=== PATIENT | female | born 1975 | race Caucasian/White ===

== ENCOUNTER → 2019-04-13 | Outpatient (CLI) | payer OTHER | END | disposition home or self-care (01) | LOC: CFH 07:06 | PROVIDERS: ATTEND Family Medicine | DX: Z12.31 Encounter for screening mammogram for malignant neoplasm of breast (principal) | CPT/HCPCS: 77063; 77067 ==

== ENCOUNTER 2020-08-07 17:17 | Emergency (ER) | payer BC, OTHER ==
[~2020-08-07] VITALS: Ht 147.3 cm; Wt 50.2 kg
[2020-08-07 17:21] VITALS: BP 122/73
[2020-08-07] MEDS ORDERED: LIDOCAINE-MPF 1%, 5ML ONE (17:37)
--- NOTE | 2020-08-07 17:38 | NUR ---
TASK RN. CC OF LAC TO LEFT FOREARM AFTER CLEANING SHOWER AND GLASS BREAKING. PT STATES SHOWER DOOR CAME OFF THE TRACKS AND WENT TO PICK IT UP AND GRABBED IT WRONG AND IT SHATTERED. PT HAS SMALLER CUTS TO LEFT HAND, BLEEDING CONTROLLED. ONE PIECE OF SMALL GLASS PICKED OUT BY PT. AT BEDSIDE. REPORT GIVEN TO DELLA ARITA
[2020-08-07] MEDS ORDERED: LIDOCAINE 1%, 10ML INFIL ONE (18:00)
[2020-08-07] MEDS ORDERED: NEOSPORIN OINT. PKT 1 PACKET ONE (18:41)
== END 2020-08-07 18:49 | disposition home or self-care (01) ==
LOC: ED 18:45
DX: S51.811A Laceration without foreign body of right forearm, initial encounter (principal); S60.812A Abrasion of left wrist, initial encounter; X58.XXXA Exposure to other specified factors, initial encounter; Y93.89 Activity, other specified; Y92.009 Unspecified place in unspecified non-institutional (private) residence as the place of occurrence of the external cause; Y99.8 Other external cause status
CPT/HCPCS: 12031; 99284

== ENCOUNTER → 2020-10-07 | Outpatient (CLI) | payer BC ==
[2020-10-07 09:15] LABS: BASOPHILS % (AUTO) 1 % (0-1); EOSINOPHILS % (AUTO) 5 % (1-7); LYMPHOCYTES % (AUTO) 27 % (22-44); MEAN CORPUSCULAR HEMOGLOBIN 24.8 pg (27.0-34.8); MEAN CORPUSCULAR HGB CONC 32.2 g/dL (32.4-35.8); MONOCYTES % (AUTO) 7 % (2-9); NEUTROPHILS % (AUTO) 59 % (42-75); PLATELET COUNT 431 x10^3/uL (130-400); RED BLOOD COUNT 4.67 x10^6/uL (3.82-5.3); RED CELL DISTRIBUTION WIDTH 17.3 % (9.6-15.2)
[2020-10-07 09:24] LABS: ALBUMIN 3.6 g/dL (3.4-5.0); ANION GAP 7 mmol/L (5-15); CALCIUM 8.4 mg/dL (8.5-10.1); CHLORIDE 107 mmol/L (98-107)
[2020-10-07 09:34] LABS: ALANINE AMINOTRANSFERASE 39 U/L (12-78); ALKALINE PHOSPHATASE 59 U/L (45-117); BILIRUBIN,TOTAL 0.3 mg/dL (0.2-1.0); CHOL/HDL RATIO 2.6; CHOLESTEROL, TOTAL 268 mg/dL (140-239); CREATINE KINASE, TOTAL 468 U/L (26-192); CREATININE 0.76 mg/dL (0.55-1.02); HDL CHOL % 38 % (28-40); HDL CHOLESTEROL (DIRECT) 102 mg/dL (40-60); LDL CHOLESTEROL,CALCULATED 155 mg/dL (54-169); LDL/HDL RATIO 1.5 (0.5-3.0); TOTAL PROTEIN 7.4 g/dL (6.4-8.2); TRIGLYCERIDES 54 mg/dL (50-200); VLDL CHOLESTEROL 11 mg/dL (0-25)
[2020-10-07 09:41] LABS: C-REACTIVE PROTEIN, QUANT 0.02 mg/dL (0.02-0.49)
[2020-10-07 09:51] LABS: MICROSCOPIC NOT IND
== END | disposition home or self-care (01) ==
LOC: LAB 08:17
PROVIDERS: ATTEND Family Medicine
DX: Z00.00 Encounter for general adult medical examination without abnormal findings (principal)
CPT/HCPCS: 36415; 80053; 80061; 81003; 82550; 83036; 84443; 85025; 86140